=== PATIENT | female | born 1975 | race Caucasian/White ===

== ENCOUNTER 2019-02-19 10:12 | Emergency (ER) | payer OTHER ==
--- NOTE | 2019-02-19 10:48 | EDPHY ---
General - History Smoking Status: Former smoker Time Seen by Provider: 02/19/19 10:22 Narrative: CLINICAL IMPRESSION: Anxiety induced shortness of breath ASSESSMENT/PLAN: 43-year-old female presents to the emergency department with 3 days of shortness of breath. Patient is visiting from [place], arrived last night. She has a history of anxiety with a recent dose increase in Lamictal. No reported cardiopulmonary disease. She was seen at a walk-in clinic yesterday, had no diagnostic workup but was given prescriptions for prednisone, albuterol and antibiotics. She arrives with stable vital signs, no tachycardia, tachypnea , hypoxia but is taking frequent deep breaths, is tearful and appears anxious. ED workup is reassuring. EKG shows normal sinus rhythm, no acute ST or T-wave changes, reviewed with Dr. Taveras. Cardiac enzyme is negative. D-dimer negative and remainder of lab work reassuring. Chest x-ray shows no acute cardiopulmonary disease. I suspect patient's symptoms are secondary to anxiety. She received a small dose of Ativan with improvement in symptoms and a prescription was given. I encouraged discussion of Lamictal dosing with her primary psychiatrist. After period of observation in the ED she felt improved. Patient was stabilized prior to discharge. Warning signs return to ED outlined in person and discharge papers. DIFFERENTIAL DX: Differential diagnosis includes but not limited to myocardial ischemia, pulmonary embolus, acute anxiety, asthma exacerbation aortic aneurysm, and pulmonary infectious causes. ED PROCEDURES: See lab and/or imaging results below ED COURSE: Patient seen and assessed by me. Vital stable, saturating 100% on room air, frequently taking deep inspirations. Appears anxious, tearful. Agrees to chest x-ray EKG and lab work. 11:30 a.m.:. EKG reviewed by myself and with Dr. Taveras. Normal sinus rhythm , rate of 67, no acute ST or T-wave changes appreciated. D-dimer negative, troponin negative, chest x-ray with no acute cardiopulmonary disease. CBC without abnormality. Basic metabolic panel pending. 12:00 p.m.: Laboratory evaluation all normal. Patient given results and feeling very reassured. Would like to try half tablet of Ativan. Plan to discharge and follow up with her primary psychiatrist at home. CHIEF COMPLAINT: Shortness of breath HPI: 43-year-old female visiting our area from [place] presents to the emergency department complaining of shortness of breath. Patient reports symptoms started 3 days ago while she was in [place]. She flew to [place] last night. She has a past medical history of anxiety, treated with Lamictal. She also reports ADD and takes 5 mg amphetamine salts. She was seen at a walk-in clinic yesterday admission again, told "he was concerned that I might have pneumonia or a pulmonary embolism, or something wrong with my heart" but did not get any kind of workup for this. Instead she was given antibiotics, prednisone and albuterol. Patient reports she did not have any EKG or chest x-ray. She states the albuterol helps if she takes "a lot of it". She also feels the prednisone is helping. She has not started the antibiotics. She has no personal or family history of DVT or PE, no asymmetric lower extremity swelling. She takes a non estrogen based daily control. She is a former smoker. She reports no chest pain or pleuritic discomfort. She feels as though she cannot expel all of her CO2. She reports a past history of asthma as a teenager but has not had problems recently. She states "I was sick all winter" but have not been ill in the last month. No history of chronic cough. She came to [place] to visit her boyfriend. She did have an increase in her Lamictal dose less than a week ago for anxiety. She does not take regular benzodiazepines for anxiety. She states her anxiety tends to manifest as "anger " rather than SOB and palpitations. No reported cardiac history. PAST MEDICAL HISTORY: Anxiety See nurse/triage notes for additional history if applicable Pertinent Past Surgical History: None reported Family History: No family history of cardiopulmonary disease Social History: Nonsmoker visiting from [place] REVIEW OF SYSTEMS: All other systems negative Constitutional: No fever, no chills, appetite change. Eyes: No discharge, vision change ENT: No sore throat, congestion, ear pain. Cardiovascular: No chest pain, no palpitations. Respiratory: No cough, positive for shortness of breath. Gastrointestinal: No abdominal pain, no vomiting, diarrhea. Genitourinary: No hematuria, dysuria, flank pain, pelvic pain Musculoskeletal: No back pain, joint swelling, joint pain, myalgias. Skin: No rashes, color change. Neurological: No headache, dizziness, weakness. PHYSICAL EXAM: General Appearance: Alert, oriented, anxious appearing, intermittently tearful , reporting "I do not Wanna ", cooperative, non-toxic appearing, VSS, no hypoxia. HEENT: TMs are clear bilaterally no perforation or FB, no injection, no evidence of serous or mucopurulent otitis. Oropharynx clear is no erythema or exudates, no tonsillar hypertrophy or asymmetry. Dentition without abnormality. Eyes: PERRLA, no acute vision change, nystagmus, swelling, discharge, pain or photosensitivity. Conjunctiva pink, no pallor or injection Neck: Supple, nontender, no lymphadenopathy, no midline pain, FROM, no meningismus. Respiratory: There are no retractions, lungs are clear to auscultation. Cardiac: Regular rate and rhythm, no murmurs or gallops. Gastrointestinal: Abdomen is soft, nontender, bowel sounds normal, no masses/ hernia, no rigidity, guarding or focal peritoneal findings. Neurological: [ Alert and oriented x 3 Skin: Warm, dry, no rashes, no nodules on palpation. Musculoskeletal: Extremities are symmetrical, full range of motion, no tenderness, deformity, swelling, or erythema. No asymmetric calf pain swelling or erythema Psychiatric: Patient is oriented X 3, there is no agitation. Appears anxious MEDICAL DECISION MAKING: Patient was seen independently. Secondary supervising physician at time of evaluation was Dr. Taveras . Diagnosis: Shortness of breath secondary to anxiety. New, requires workup Summary: See Assessment and Plan for summary of ED visit Clinical lab tests: ordered / reviewed. Independent visualization of images, tracing, or specimens: Yes. Decision to obtain medical records or history from someone other than the patient: No Review / Summarize previous medical records: None available Discussed patient with another provider: Dr. Taveras Patient Progress: Stable for discharge. (Teofilo Loomis) Medical Decision Making: I did not see this patient while she was in the emergency department. However her care was discussed with the PA while the patient was in the department. I agree with treatment plan and management (DarcyRomero Kay) - Objective Vital Signs: Initial Vital Signs Temperature (C) 36.5 C 02/19/19 10:14 Heart Rate 82 02/19/19 10:14 Respiratory Rate 18 02/19/19 10:14 Blood Pressure 147/82 H 02/19/19 10:14 O2 Sat (%) 97 02/19/19 10:14 O2 Delivery Mode Room Air Allergies/Adverse Reactions: No Known Allergies Allergy (Unverified 02/19/19 10:19) Home Medications: Medication Instructions Recorded Amphetamine 02/19/19 LORazepam [Ativan] 1 tab PO BID PRN #6 tab 02/19/19 Lamictal 02/19/19 Prednisone 02/19/19 Laboratory Results: Laboratory Results 02/19/19 10:50 02/19/19 10:50 Medications Given: Discontinued Medications Lorazepam (Ativan) 0.5 mg PO EDNOW ONE Stop: 02/19/19 12:09 Last Admin: 02/19/19 12:12 Dose: 0.5 mg Point of Care Test Results: Chemistry 02/19/19 11:07 POC Troponin I 0.00 ng/mL ng/mL (0.00-0.08) Departure - Departure Disposition: Home, Routine, Self-Care Clinical Impression: Shortness of breath Condition: Good Instructions: Shortness of Breath (ED) Additional Instructions: DISCHARGE INSTRUCTIONS FROM YOUR DOCTOR Thank you for visiting our emergency department today. You were treated by a physician assistant product manager today and your case was reviewed with our ED Attending physician. Please keep in mind that discharge from the emergency department does not mean that there is nothing wrong - it simply means that we have not identified an emergency condition that requires further evaluation or treatment in the hospital. You should always plan to follow up with primary care for re- evaluation of your condition in the next 2-3 days. If you have been referred to a specialist, please call as soon as possible (today or tomorrow) to schedule your follow up appointment at the appropriate time. DIAGNOSTIC EVALUATION IN THE EMERGENCY DEPARTMENT TODAY INCLUDED EKG, CARDIAC ENZYMES, D-DIMER, LAB WORK AND A CHEST X-RAY. YOUR WORKUP IS VERY REASSURING. WE SEE NO ABNORMAL CARDIAC RHYTHM AND CARDIAC ENZYMES ARE NEGATIVE. CHEST X- RAY READ BY RADIOLOGY WITH NO ACUTE FINDINGS IDENTIFIED AND LAB WORK IS ALL NORMAL. THIS MAY BE A MANIFESTATION OF UNDERLYING ANXIETY OR PANIC. PLEASE DISCUSS ADJUSTING DOSES OF YOUR LAMICTAL WITH HER PRIMARY PSYCHIATRIST BEFORE CHANGING DOSES. A SMALL AMOUNT OF ATIVAN WAS GIVEN IN THE ED AND A PRESCRIPTION WAS PROVIDED. PLEASE MONITOR SYMPTOMS CLOSELY AND FOLLOW UP WITH HER PRIMARY CARE DOCTOR WHEN HE RETURNS HOME. RETURN TO THE EMERGENCY DEPARTMENT SOONER FOR WORSENING SHORTNESS OF BREATH, DEVELOPMENT OF CHEST PAIN, FAINTING EPISODES, SEVERE DIZZINESS OR ANY OTHER CONCERN. People present with illnesses and injuries in different ways, and it is always possible that we have missed something. You may always return for re-evaluation if symptoms worsen or if they are not improving or if you develop new/different symptoms. Again, thank you for choosing our emergency department. We hope that you feel better. Referrals: [facility] [Other] - 2-3 days, call for appt. Prescriptions: LORazepam [Ativan] 1 tab PO BID PRN #6 tab PRN Reason: Anxiety
--- NOTE | 2019-02-19 11:07 | CPEKG ---
Test Reason : OPEN Blood Pressure : / mmHG Vent. Rate : 067 BPM Atrial Rate : 068 BPM P-R Int : 126 ms QRS Dur : 101 ms QT Int : 429 ms P-R-T Axes : 010 030 057 degrees QTc Int : 453 ms Sinus rhythm Confirmed by Romero Taveras ([id number]) on 02/19/2019 11:06:53 AM Referred By: Romero Taveras Confirmed By:Romero Taveras
[2019-02-19 11:14] LABS: PLATELET COUNT 288 10^3/uL (150-400)
[2019-02-19] MEDS ORDERED: LORazepam 0.5 MG TAB PO ONE (12:08)
[2019-02-19 12:14] VITALS: BP 126/75
== END 2019-02-19 12:21 | disposition home or self-care (01) ==
DX: F41.9 Anxiety disorder, unspecified (principal); R06.02 Shortness of breath; Z87.891 Personal history of nicotine dependence
CPT/HCPCS: 84484-ER